=== PATIENT | female | born 1950 | race Caucasian/White ===

== ENCOUNTER 2016-09-18 14:14 | Emergency (ER) | payer MEDICARE ==
[2016-09-18 14:31] VITALS: BP 132/79; PULSE 77; RESP 18; TEMP 97.5
--- NOTE | 2016-09-18 15:06 | ED ---
General Adult HPI - General Chief complaint: Extremity Injury, Lower Stated complaint: Fall/Foot Pain Time Seen by Provider: 09/18/16 14:30 Source: patient, RN notes reviewed Mode of arrival: wheelchair Limitations: no limitations - History of Present Illness Initial comments: Patient 66-year-old female who presents emergency room today with chief complaint of a right broken foot. States that he went to urgent care today was was advised to follow-up with orthopedics. States she went to orthopedics and was unable to get an appointment until next week. He was advised to come here to the ER. Patient does admit to a fall that occurred yesterday. Patient states that she's going down some steps outside when she slipped and hit the right foot. Patient denies any other complaints or injuries. Patient denies any recent fever, chills, shortness of breath, chest pain, back pain, abdominal pain, nausea or vomiting, numbness or tingling, dysuria or hematuria, constipation or diarrhea, headaches or visual changes, or any other complaints. - Related Data Home Medications Medication Instructions Recorded Confirmed No Known Home Medications [No 09/18/16 09/18/16 Known Home Medications] Allergies Allergy/AdvReac Type Severity Reaction Status Date / Time Sulfa (Sulfonamide Allergy Unknown Verified 09/18/16 14:31 Antibiotics) Review of Systems ROS Statement: Those systems with pertinent positive or pertinent negative responses have been documented in the HPI. ROS Other: All systems not noted in ROS Statement are negative. Past Medical History Additional Past Medical History / Comment(s): osteoporosis History of Any Multi-Drug Resistant Organisms: None Reported Past Surgical History: Section Past Psychological History: No Psychological Hx Reported Smoking Status: Never smoker Past Alcohol Use History: Occasional Past Drug Use History: None Reported General Exam - General Exam Comments Initial Comments: General: The patient is awake and alert, in no distress, and does not appear acutely ill. Neck: The neck is supple, there is no tenderness or JVD. Cardiovascular: There is a regular rate and rhythm. No murmur, rub or gallop is appreciated. Respiratory: Lungs are clear to auscultation, respirations are non-labored, breath sounds are equal. No wheezes, stridor, rales, or rhonchi. Musculoskeletal: Patient does have some mild swelling bruising to the lateral aspect of the right foot. Sensations intact with pulses in bilateral 2+. Neurological: A&O x 3. CN II-XII intact, There are no obvious motor or sensory deficits. Coordination appears grossly intact. Speech is normal. Skin: Skin is warm and dry and no rashes or lesions are noted. Psychiatric: Normal mood and affect. Limitations: no limitations Course Vital Signs 09/18/16 14:29 Temperature 97.5 F L Pulse Rate 77 Respiratory 18 Rate Blood Pressure 132/79 O2 Sat by Pulse 98 Oximetry Medical Decision Making - Medical Decision Making Patient's x-rays from urgent care reviewed and does show a fifth metatarsal fracture midshaft with minimal displacement. Results discussed with the patient. Patient's placed in a short leg posterior OCL splint. Neurovascular rechecked and intact. Patient advised follow-up with orthopedics over the next 2 days. Patient does have crutches at home that she can use with nonweightbearing. Patient advised continued ice elevate the affected area. Patient states understanding and is in agreement. Disposition Clinical Impression: Foot fracture, right Disposition: HOME SELF-CARE Condition: Good Instructions: Foot Fracture in Adults (ED) Additional Instructions: Please leave splinted in place until follow-up with orthopedics over the next 2 days as discussed. Please continue to ice elevate the affected area. Please use Tylenol or pain as needed. Please return to emergency room for any other concerns. Referrals: Nonstaff,Physician [Primary Care Provider] - 1-2 days Waldemar Rasheed DO [Doctor of Osteopathic Medicine] - 1-2 days Time of Disposition: 15:07
== END 2016-09-18 15:23 | disposition home or self-care (01) ==
LOC: EC 14:14
DX: S92.351A Displaced fracture of fifth metatarsal bone, right foot, initial encounter for closed fracture (principal); Z88.2 Allergy status to sulfonamides; W10.9XXA Fall (on) (from) unspecified stairs and steps, initial encounter
CPT/HCPCS: 29515; 99283